=== PATIENT | male | born 1995 | race Caucasian/White ===

== ENCOUNTER 2019-09-09 05:09 | Emergency (ER) | payer OTHER ==
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
[2019-09-09 05:41] LABS: Absolute Neutrophil Ct (ANC) 6.88 (1.4-6.9); BASOPHIL % 0.3 % (0.0-0.4); Basophil (Absolute #) 0.03 (0-0.4); Eosinophil % 3.6 % (0.00-5.0); Eosinophil (Absolute #) 0.36 (0-0.5); Hematocrit 41.4 % (42-50); Hemoglobin 13.6 gm/dl (12.5-18.0); Lymphocyte (Absolute #) 1.84 (1.0-4.6); Lymphocytes % 18.5 % (24.0-44.0); Mean Cell Volume 96.1 fl (78-100); Mean Corpuscular Hemoglobin 31.6 pg (26-32); Mean Corpuscular Hgb Concent. 32.9 g/dl (32-36); Mean Platelet Volume 9.3 fl (7.5-11.0); Monocyte (Absolute #) 0.85 (0.0-1.3); Monocytes % 8.5 % (0.0-12.0); Neutrophil % 69.1 % (36.0-66.0); Platelet Count 317 K/mm3 (150-450); Red Blood Count 4.31 M/mm3 (4.1-5.6)
[2019-09-09] MEDS ORDERED: Sodium Chloride 0.9% 1000 ML 1,000 ML ONE (06:04)
[2019-09-09] MEDS ORDERED: Zofran 4 MG/2 ML VIAL ONE (06:04)
[2019-09-09] MEDS: Zofran 4 MG/2 ML VIAL IV ONE (06:07)
[2019-09-09] MEDS: Sodium Chloride 0.9% 1000 ML 1,000 ML IV SCH (06:08)
[2019-09-09 06:18] LABS: BLOOD UREA NITROGEN 13 mg/dL (9-20); Creatinine 1 1.02 mg/dL (0.66-1.25); Glucose 83 mg/dL (74-106); SODIUM 140 mmol/L (137-145)
[2019-09-09 06:19] LABS: ALBUMIN 4.3 g/dL (3.5-5.0); ALKALINE PHOSPHATASE 65 U/L (38-126); CHLORIDE 106 mmol/L (98-107); Calcium 9.2 mg/dL (8.4-10.2); Carbon Dioxide 26 mmol/L (22-30); Potassium 3.2 mmol/L (3.5-5.1); SGOT/AST 32 U/L (17-59); SGPT/ALT 13 U/L (0-50); Total Protein 7.9 g/dL (6.3-8.2)
[2019-09-09 06:20] LABS: ANION GAP 11.2 MEQ/L (5-15); ETHYL ALCOHOL < 10 mg/dL (0-10)
[2019-09-09 06:55] LABS: Appearance CLOUDY (CLEAR); Bacteria RARE /HPF (NEGATIVE); Bilirubin NEGATIVE (NEGATIVE); Blood NEGATIVE Ery/ul (0-5); Glucose NEGATIVE (NEGATIVE); Ketones NEGATIVE (NEGATIVE); Leukocyte Esterase NEGATIVE (NEGATIVE); Mucus SLIGHT /HPF (NEGATIVE); Nitrite NEGATIVE (NEGATIVE); Protein,Urine Dip NEGATIVE (Negative); Specific Gravity 1.019 (1.005-1.025); Urobilinogen 2 mg/dL (0-1); WBC 0-2 /HPF (0-5)
[2019-09-09 07:20] VITALS: BP 146/103
[2019-09-09 07:36] LABS: Barbiturate,Urine NEGATIVE (NEGATIVE); Benzodiazepine,Urine NEGATIVE (NEGATIVE); Cocaine,Urine NEGATIVE (NEGATIVE); Methadone,Urine NEGATIVE (NEGATIVE); Opiate,Urine NEGATIVE (NEGATIVE); PCP,Urine NEGATIVE (NEGATIVE); THC,Urine POSITIVE (NEGATIVE)
[2019-09-09 07:43] LABS: Amphetamine,Urine POSITIVE (NEGATIVE)
[2019-09-09 08:02] VITALS: PULSE 92; O2SAT 98
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
== END 2019-09-09 08:28 | disposition home or self-care (01) ==
LOC: ED 05:09
DX: T14.8XXA Other injury of unspecified body region, initial encounter (principal); V89.0XXA Person injured in unspecified motor-vehicle accident, nontraffic, initial encounter; Y93.89 Activity, other specified; Y92.89 Other specified places as the place of occurrence of the external cause
CPT/HCPCS: 36000; 36415; 70450; 71250; 72125; 73030; 80053; 80307; 81001; 85025; 93005; 93041; 96374; 99285; 99291; G0480; J2405